=== PATIENT | female | born 1970 | race Caucasian/White ===

== ENCOUNTER 2017-03-26 06:48 | Inpatient (IN) ==
--- NOTE | 2017-03-26 07:09 | EKG Report ---
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
[2017-03-26] MEDS ORDERED: ONDANSETRON 4 MG/2 ML VIAL IV PRN (07:15)
[2017-03-26] MEDS ORDERED: ASPIRIN 325 MG TABLET PO STA (07:15)
[2017-03-26] MEDS ORDERED: ENOXAPARIN 100 MG/ML SYRINGE SUBCUT STA (07:15)
[2017-03-26] MEDS ORDERED: NITROGLYCERIN 2% OINT 1 INCH/GM PACK TOP STA (07:15)
--- NOTE | 2017-03-26 07:18 | Emergency Department Note ---
Koffi Craig Gwan, am scribing for, and in the presence of, Amos Collins MD 07:16 . Karina Craig James D, MD, personally performed the services described in this documentation, ascribed by Ada Rain in my presence, and it is both accurate and complete . Arrival - Arrival Stated Complaint: chest pain,SOB Mode of Arrival: Wheelchair Limitations: No Limitations Source: Patient, Old Records Reviewed, RN Notes Reviewed - History of Present Illness HPI Narrative: Patient is a 46 y/o white female, with a hx of HTN and hysterectomy, who presents to the ED with a c/o chest pain and SOB with an onset this 0500 this morning. She describes her discomfort as waxing/waning and her chest pain as squeezing chest pain that radiates down her left arm. Her associated sxs have been nausea. Patient confirmed that she was drinking coffee at rest when onset occurred but denies that anything makes her pain worse or better. She rates her pain a 2 out of 10. Pt has a FMHx of heart disease, her father had a heart attack at the age of 55. She has a SHx of smoking 1 ppd cigarettes for the past 7 years. During exam, pt did not show any signs of distress. No other problem/ complaints reported in ED. Onset (ago): hour(s) Consistency: constant Severity: moderate Allergies/Adverse Reactions: Allergies Allergy/AdvReac Type Severity Reaction Status Date / Time diphenhydramine Allergy Shakiness Verified 03/26/17 07:02 [From Benadryl] meperidine [From Demerol] AdvReac Nausea Verified 03/26/17 07:02 Review of System - Review of System 12 point system: reviewed and no additional remarkable complaints except as stated - Review of System Constitutional: Absent: chills, fever Eyes: Absent: discharge, pain Head/Ears/Nose/Throat: Absent: earache Respiratory: Present: as per HPI, other (shortness of breathe) Cardiovascular: Present: as per HPI, chest pain Gastrointestinal: Present: as per HPI, nausea. Absent: abdominal pain, vomiting , diarrhea Genitourinary female: Absent: dysuria, discharge Musculoskeletal: Absent: arm pain, back pain, leg pain, neck pain Skin: Absent: rash, lesions Exam Physical Examination: GENERAL: This is a well-nourished, well-developed white female in no apparent distress. VITAL SIGNS: HEENT: Head is normocephalic and atraumatic. Pupils are equally round and reactive to light. Extraocular movement are intact. Oropharynx is benign with moist mucous membranes. NECK: Neck is soft and supple without tenderness. There are no masses. There is no lymphadenopathy. LUNGS: Lungs are clear to auscultation bilaterally. Chest rises symmetrically. There is no chest wall tenderness. CV: Heart is regular rate and rhythm without murmurs, rubs, or gallops. ABDOMEN: Abdomen is soft, non-tender to palpation. There are no abnormal masses palpated. There is no organomegaly. Bowel sounds are present and active. SKIN: Skin is warm and dry. No rash. EXTREMITIES: Patient has full range of motion without tenderness. There is no pedal edema. NEUROLOGIC: Awake, alert, and oriented x4. Cranial nerves II through XII are grossly intact. There are no motorsensory deficits. PSYCHIATRIC: Normal affect. Normal mood. Vital Signs: Vital Signs Temperature 97.6 F 03/26/17 07:53 Pulse Rate 87 03/26/17 07:53 Respiratory Rate 20 03/26/17 07:53 Blood Pressure 121/80 03/26/17 07:53 O2 Sat by Pulse Oximetry 96 03/26/17 06:49 Course Course Narrative: Patient was given aspirin Lovenox and nitroglycerin paste while in the emergency department. - Consultations Consultation #1: Discussed with Dr. Taylor resolution analyst for Dr. Baltazar. Patient will be admitted to his service. Initial orders written for him. Dr. Taylor will assume patient's care upon arrival to the [facility] peer Time: 09:40 Results - Labs CBC & BMP: 03/26/17 07:36 03/26/17 07:36 Lab Results: I have reviewed the patients labs Labs: Laboratory Tests 03/26/17 03/26/17 03/26/17 07:36 07:36 07:36 WBC RBC Hgb Hct Plt Count Lymph % (Auto) [place] % (Auto) Baso % (Auto) Lymph # (Auto) INR 1.0 PT Patient/Control Mix 11.1 Circ Anticoag PTT 31.7 Urine pH 5.0 Ur Specific [place] 1.012 Urine Urobilinogen < 2.0 H Urine RBC <1 Urine WBC <1 Urine Opiates Screen Negative Ur Barbiturates Screen Positive H Ur Phencyclidine Scrn Negative U Amphetamine/Methamph Negative U Benzodiazepines Scrn Negative U Cocaine Metab Screen Negative U Cannabinoids Screen Negative Laboratory Tests 03/26/17 07:36 WBC 5.6 RBC 3.81 Hgb 12.3 Hct 35.2 L Plt Count 174 Lymph % (Auto) 16.7 L Lucas % (Auto) 13.5 H Baso % (Auto) 0.9 H Lymph # (Auto) 0.9 L Laboratory Tests 03/26/17 07:36 Sodium 140 Potassium 4.1 Chloride 106 Carbon Dioxide 27 BUN 17 Creatinine 0.70 BUN/Creatinine Ratio 24.00 H AST 65 H ALT 59 H Laboratory Tests 03/26/17 07:36 Troponin I < 0.015 - EKG EKG results: interpreted by ERMD (EKG: Normal sinus rhythm with a rate of 78, nonspecific ST-T wave changes, normal axis. Nonspecific intraventricular conduction delay.) - Diagnostic Findings Procedure: Chest x-ray: image reviewed by me (No infiltrates, no pleural effusions, no cardiomegaly) Disposition Clinical Impression: Chest pain, Dyspnea, Essential hypertension, Family history of coronary artery disease in father Case discussed with: patient, patient's family Disposition: Still a Patient Condition: Stable
[2017-03-26] MEDS ORDERED: NITROGLYCERIN 2% OINT 1 INCH/GM PACK TOP ONE (07:29)
[2017-03-26] MEDS ORDERED: ENOXAPARIN 100 MG/ML SYRINGE SUBCUT ONE (07:29)
[2017-03-26] MEDS ORDERED: ASPIRIN 325 MG TABLET ONE (07:30)
[2017-03-26] MEDS ORDERED: MORPHINE 2 MG/1 ML SYRINGE ONE (07:30)
[2017-03-26] MEDS ORDERED: ONDANSETRON 4 MG/2 ML VIAL ONE ×2 (07:30→07:32)
[2017-03-26] MEDS: NITROGLYCERIN SL 0.4 MG TABLET SL PRN ×4 (07:37→17:39)
[2017-03-26] MEDS: MORPHINE 2 MG/1 ML SYRINGE IV PRN ×2 (07:43→10:49)
[2017-03-26 08:08] LABS: Basophils # 0.1 10*3/uL (0.0-0.2); Basophils % 0.9 % (0.0-0.8); Eosinophils # 0.2 10*3/uL (0.0-0.87); Eosinophils % 2.7 % (0.00-10.9); Hematocrit 35.2 VOL% (35.7-47.0); Hemoglobin 12.3 GM/DL (12.0-16.0); Immature Granulocytes % 0.4 %; Immature Granulocytes Absolute 0.02 #; Lymphocytes # 0.9 10*3/uL (1.4-4.0); Lymphocytes % 16.7 % (21.3-54.2); Mean Corpuscular HGB Conc 34.9 GM/DL (32-36); Mean Corpuscular Hemoglobin 32 PG (27-34); Mean Corpuscular Volume 92.4 FL (87-102); Mean Platelet Volume 11.4 FL (9.6-12.0); Monocytes # 0.8 10*3/uL (0.11-0.8); Monocytes % 13.5 % (1.7-12.7); Neutrophils # 3.7 10*3/uL (1.4-7.4); Neutrophils % 65.8 % (38.7-73.9); Platelet Count 174 T/CUMM (130-400); Red Blood Count 3.81 MC/CUMM (3.8-5.5); Red Cell Distribution Width 12.5 % (9.3-17.3); White Blood Count 5.6 T/CUMM (4-12)
--- NOTE | 2017-03-26 08:13 | XRay Report ---
XR chest 2V Date: 03/26/2017 7:04 AM History: Cough, fever, chest pain, shortness of breath Comparison: 04/22/2013 Technique: PA and lateral chest Findings: The heart is normal in size. Atelectasis/infiltration in the lingula. Stable mediastinum. Degenerative changes with persistent scoliosis. Impression: Evidence of pneumonia involving the lingula with associated atelectasis. PROCEDURE INTERPRETED AT [facility] DEPARTMENT OF RADIOLOGY Final Report Signed by: Dr. Karo Dorsey
[2017-03-26 08:15] LABS: Apearance,Urine Slightly Hazy (Clear); Bacteria,Urine Occasional /HPF (Few); Bilirubin,Urine Negative (Negative); Blood, Urine Negative (Negative); Glucose,Urine (UA) Negative (Negative); Ketones,Urine Negative (Negative); Mucus,Urine Occasional /LPF (Occasional); Nitrite,Urine Negative (Negative); Protein,Urine Negative; RBC,Urine <1 /HPF (0-4); Squamous Epithelial Cell,Urine Occasional /HPF (0-10); Urine Color Yellow (Yellow); Urine Specific Gravity 1.012 (1.001-1.035); Urine Urobilinogen < 2.0 EU/DL (0.2-1.0); WBC,Urine <1 /HPF (0-6)
[2017-03-26 08:20] LABS: PT Patient Result 11.1 SECS; Partial Thromboplastin Time 31.7 SECS (0-40)
[2017-03-26 08:23] LABS: Barbiturates Screen,Urine Positive (Negative); Benzodiazepines Screen,Urine Negative (Negative); Cannabinoid Screen,Urine Negative (Negative); Opiate Screen,Urine Negative (Negative); Phencyclidine Screen,Urine Negative (Negative)
[2017-03-26 08:48] LABS: Albumin 3.7 G/DL (3.4-5.0); Bilirubin,Total 0.4 MG/DL (0.2-1.0); Calcium 8.6 MG/DL (8.5-10.1); Osmolality,Calculated 280.4 MOS/KG (273-304); Potassium 4.1 MMOL/L (3.5-5.1); Total Protein 6.7 G/DL (6.4-8.3)
[2017-03-26] MEDS: ENOXAPARIN 40 MG/0.4 ML SYRINGE SUBCUT SCH (11:00)
[2017-03-26] MEDS: SODIUM CHLORIDE 0.9% 1,000 ML IV SCH ×2 (11:00→17:57)
--- NOTE | 2017-03-26 13:18 | EKG Report ---
Stationary ECG Study [facility] Test Date: 03/26/2017 1:15:31 PM Pat Name: GERDA MARTINEZ Department: Room: 516 Gender: F Flavoring Maker: [place] : 1970 Requested by: Amos Hinson Order Number: [id number] Reading MD: REGINE STEVENSON Intervals [place] Rate: 75 P: 74 [place]: 182 QRS: -34 QRSD: 126 T: 52 QT: 421 QTc: 450 Interpretive Statements SINUS RHYTHM LEFT AXIS DEVIATION POSSIBLE LATERAL MYOCARDIAL INFARCTION, PROBABLY OLD LOW VOLTAGE IN THE LIMB LEADS NON-SPECIFIC IVCD. Electronically Signed On 03-28-17 07:28:37 CDT by REGINE STEVENSON [id number]
[2017-03-26] MEDS ORDERED: traMADol 50 MG TABLET PO PRN (14:48)
[2017-03-26] MEDS ORDERED: MAGNESIUM SULF RIDER 2 GM in PREMIX 1 EACH IV PRN (14:49)
--- NOTE | 2017-03-26 16:29 | Cardiology Consult Note ---
Raudel Craig Vanessa, RN, am scribing for, and in the presence of, Julio Duran MD 16:25. Assessment and Plan - Time spent with patient Time spent with patient: Greater than 30 minutes (Due to assessment, planning, documentation, and medication review) Time spent discussing smoking cessation with patient: 3 to 10 minutes (1) Chest pain Status: Acute Assessment and plan: Clinically, there are no findings for acute coronary syndrome at this time. Certainly much of her symptomatology sounds to be that of anginal quality at times. She has multiple risk factors for coronary disease and needs a definitive diagnosis. As noted above we will carry out cardiac catheterization with possible PCI.. Current Visit: Yes (2) Dyspnea Status: Acute Assessment and plan: Improved at this time. Chest x-ray this morning with evidence of pneumonia. Current Visit: Yes (3) Essential hypertension Status: Chronic Assessment and plan: Well controlled at this time. Continue current medication regimen. Current Visit: Yes (4) Family history of coronary artery disease in father Status: Chronic Assessment and plan: Father at age 49 due to acute [place]. Current Visit: Yes (5) Dyslipidemia Status: Chronic Assessment and plan: Statin has been continued. FLP in the morning. Current Visit: Yes (6) Smoker Status: Chronic Assessment and plan: Tobacco cessation counseling. Current Visit: Yes History of Present Illness - Data of Consult Patient: new to practice Consult date: 03/26/17 Requesting Physician: Amos Collins Primary care physician: Tejas Baltazar - Consult Narrative Reason for consult: chest pain History of present illness: PRIMARY POLICEMAN: NEW TO CARDIOLOGY (DR. DURAN) CARDIOLOGY CONSULT NOTE: CHEST PAIN, SHORTNESS OF BREATH Ms. Andrew is a 46 year old white female with risk factor significant for: Hypertension, hyperlipidemia, obesity, positive family history for premature CAD , and current smoker. 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 Patient presented to [facility] ED this more with complaints of chest pain with onset earlier this morning while drinking coffee. Reported chest pain as a "muscle spasm" with radiation into the left shoulder and arm, associated with nausea, diaphoresis, and "hard to take in a deep breath". No dizziness lightheadedness, or presyncope. Reports this episode lasted approximately 2 hours until she was in the emergency room, and received aspirin , morphine, Zofran, and sublingual nitroglycerin 2. Cardiac biomarkers have been normal. EKG reveals sinus rhythm and no acute ST segment change. Chest x- ray with evidence for pneumonia. In speaking and examining patient, she reports she has been experiencing these episodes for approximately 2-3 weeks, and she cannot identify any aggravating or alleviating factors. Reports these typically occur at rest, and once about 2 weeks ago, it occurred while she was up and about taking care of her young grandson. Reports she has also had a cold with congestion for the past few days , and has had a nonproductive cough. She also tells me that she had an episode of chest pain approximately 1 hour prior to exam, she received 1 sublingual nitroglycerin, and she felt "maybe a little better" after about 10 minutes. No orthopnea, PND, palpitation. She is not routinely have significant lower extremity edema, but she does have concern that her ankles and feet have been more swollen than usual in the morning time for about the past month. Follow- up troponin level normal. Cardiac monitoring reveals sinus rhythm with pulse rate in the 70s and no ectopy or dysrhythmia. Appetite is good, and she has recently eaten lunch. She has no acute distress at time of exam, and she is not experiencing any current chest pain, shortness of breath, or other complaint. Certainly with her risk factors for coronary artery disease and symptomatology she is having she should have definitive diagnosis carried out. I am concerned that stress testing would be inadequate and that she would probably have symptomatology. I discussed cardiac catheterization with her and her who is present during the interview and exam. I reviewed with him the indication procedure had be carried out and the risk. I discussed cardiac catheterization and percutaneous coronary intervention with the patient and available family. I reviewed with them the indications for the procedure and the basis of how the procedure would be carried out. I also reviewed with them the risk of the procedure which include but not necessarily limited to access site bleeding, bruising, pain, swelling or vascular injury that may require emergency vascular surgery, blood transfusion, or thrombin injection. Also discussed the possibility of stroke, myocardial infarction, arrhythmia which may require electrocardioversion, and the possibility of dye reaction that would require medical therapy. Also discussed the possibility of coronary artery injury, ruptured, closure or perforation that may require emergency bypass surgery. We also discussed the possibility of from a major complication. They voice understanding and agree to proceed. She also is noted on exam to have a murmur with an echocardiogram today. CC: Kym Taylor, DO - Home Medications and Allergies Home Medications: Home Medications Medication Instructions Recorded Confirmed Type Furosemide Tab [Lasix Tab] 20 mg PO DAILY 01/18/15 03/26/17 History Potassium Chloride [Klor-Con 10] 20 meq PO BID 01/18/15 03/26/17 History Sertraline [Zoloft] 50 mg PO DAILY 01/18/15 03/26/17 History Pantoprazole Tab [Protonix Tab] 40 mg PO BID #60 tablet 01/21/15 03/26/17 Rx Atorvastatin [Lipitor] 20 mg PO BEDTIME 07/07/16 03/26/17 History amLODIPine [Norvasc] 5 mg PO BID 07/13/16 03/26/17 History Montelukast Tab [Singulair Tab] 10 mg PO BEDTIME 03/26/17 03/26/17 History Tramadol HCl [Tramadol Tab] 50 mg PO Q6H PRN 03/26/17 03/26/17 History Valsartan/Hydrochlorothiazide 1 tablet PO DAILY 03/26/17 03/26/17 History [Valsartan-Hctz 160-12.5 mg Tab] Zolpidem [Ambien] 5 mg PO BEDTIME PRN 03/26/17 03/26/17 History Allergies/Adverse Reactions: Allergies Allergy/AdvReac Type Severity Reaction Status Date / Time diphenhydramine Allergy Intermediate RASH Verified 07/07/16 16:04 [From Benadryl] meperidine [From Demerol] AdvReac Mild Nausea Verified 07/07/16 16:04 - Constitutional Constitutional: Present: chills, fever(s) (Subjective). Absent: increased appetite, lethargy, malaise, night sweats, stops breathing during sleep, weakness, weight gain, weight loss - EENT Eyes: Absent: blurry vision, loss of vision Ears: Absent: decreased hearing Nose, mouth and throat: Present: sinus pressure. Absent: dysphagia, epistaxis, headache(s), hoarseness, lip swelling, sore throat, throat swelling, tongue swelling - Cardiovascular Cardiovascular: Present: chest pain at rest (None at this time), chest pain with activity (None at this time), diaphoresis (9 this time), dyspnea (None at this time), dyspnea on exertion (None at this time), edema, radiating jaw, neck or arm pain (None currently). Absent: claudication, orthopnea, palpitations - Respiratory Respiratory: Present: cough (Nonproductive), dyspnea, dyspnea on exertion. Absent: hemoptysis, change in phlegm color - Gastrointestinal Gastrointestinal: Present: nausea. Absent: abdominal pain, bloating, coffee ground emesis, constipation, diarrhea, dysphagia, heartburn, hematemesis, hematochezia, melena, vomiting, jaundice - Genitourinary Genitourinary: Absent: abnormal vaginal bleeding, dysuria, flank pain, hematuria - Musculoskeletal Musculoskeletal: Absent: limited range of motion - Neurological Neurological: Absent: abnormal gait, abnormal speech, confusion, numbness, syncope, tremor(s) - Psychiatric Psychiatric: Absent: anxiety, confusion, depression - Endocrine Endocrine: Absent: cold intolerance, heat intolerance - Hematologic/Lymphatic Hematologic/Lymphatic: Absent: easy bleeding, easy bruising Medical,Surgical,& Family Hx - Medical History Cardio: History of: Hypertension No history of: Cardiac Dysrhythmia, CHF, CAD, [place], Pacemaker, PVD Psychological: History of: Anxiety Disorders, Depression Neurology: No history of: Cerebrovascular Accident, Dementia, Seizures, TIA Endocrine: History of: Dyslipidemia Rheumatology: No history of;: Fibromyalgia, Gout Respiratory: History of: Bronchitis, Obstructive Sleep Apnea No history of: COPD Genitourinary: No history of: Kidney Stones Gastrointestinal: History of: Bowel Obstruction, Crohn's Disease, GERD, Polyps, Ulcerative Colitis No history of: Esophageal Varices, Gastrointestinal Bleed Comment Only: GI Problems (History of ulcers) Musculoskeletal: No history of: Back/Neck Problems Hematology: History of: Anemia No history of: Blood Transfusion Reaction Reproductive: History of: Abnormal Pap Smear - Surgical History Cardiac Surgeries: Patient Denies: Cardiac Catheterization, Cardiac Surgery, Carotid Endarterectomy HEENT Surgeries: Surgical HX of: Eye Surgery (LASER SURGERY BILATERAL), Thyroid Surgery Abdominal Surgeries: Surgical HX of: Colonoscopy Reproductive Surgeries: Surgical HX of;: Breast Surgery (lumpectomy, left), Section, Gynecologic Surgery, Hysterectomy Patient denies;: Genitourinary Surgery - Family History Family History: Reports;: Family Cancer (COLON), Family Diabetes, Family Heart Disease (dad-massive heart attack, age 49), Family Hypertension, Family Stroke Denies;: Family Psychiatric Problems - Social History Smoking Status: Current every day smoker Have you smoked in the last 12 months: Yes Frequency of Alcohol Use: None Type of Drug Use: None Lives With:: Parent Functional capacity: independent ambulation Physical Examination Vital Signs Temp Pulse Resp BP Pulse Ox 97.6 F 87 20 121/80 96 03/26/17 06:49 03/26/17 06:49 03/26/17 06:49 03/26/17 06:49 03/26/17 06:49 General: Present: No Apparent Distress, Other (Obese) HEENT: Present: PERRL, Normocephaly, Mucus Membranes Moist Neck: Present: Supple Neck, Midline Trachea, No JVD/HJR, No Masses, No Bruit Cardiac: Present: Reg Rate and Rhythm, Systolic Murmur (1/6 at apex). Absent: Tachycardia, Bradycardia Lungs: Present: Clear Ascult./Percussion, Oxygen, No Wheeze, Rales, Rhonchi Neuro: Present: Grossly Intact. Absent: Numbness, Tingling, Weakness, Resting Tremor, Essential Tremor Abdomen: Present: Soft, Active Bowel Sounds, No Masses, No Pulsations/Bruits, Other (Obese). Absent: Ascites, Tender, Firm Skin: Present: Clear. Absent: Rash, Suspicious Lesions, Bruising Musculoskeletal: Present: No Fluid Collection, Normal Range of Motion Extremities: Present: No Clubbing, No Cyanosis, Normal Upper Extr. Pulses (3+ bilaterally), Normal Lower Extr. Pulses (2-3+ bilaterally), Edema (Minimal to trace pretibial), Capillary Refill (Normal) Result/EKG - Labs CBC & BMP: 03/26/17 07:36 03/26/17 07:36 Lab Results: I have reviewed the past 24 hour labs Labs: Laboratory Results - last 24 hr 03/26/17 03/26/17 03/26/17 07:36 07:36 07:36 WBC RBC Hgb Hct MCV MCH MCHC RDW Plt Count MPV Neut % (Auto) Lymph % (Auto) [place] % (Auto) Eos % (Auto) Baso % (Auto) Neut # (Auto) Lymph # (Auto) [place] # (Auto) Eos # (Auto) Baso # (Auto) Immature Gran % Nucleated RBC % Immature Gran # Nucleated RBCs # INR 1.0 PT Patient/Control Mix 11.1 Circ Anticoag PTT 31.7 Sodium 140 Potassium 4.1 Chloride 106 Carbon Dioxide 27 Anion Gap 11.1 BUN 17 Creatinine 0.70 GFR Calculation 120 BUN/Creatinine Ratio 24.00 H Glucose 97 Calculated Osmolality 280.4 Calcium 8.6 Total Bilirubin 0.40 AST 65 H ALT 59 H Alkaline Phosphatase 113 Troponin I Total Protein 6.7 Albumin 3.7 Globulin 3.0 Albumin/Globulin Ratio 1.2 Urine Color Yellow Urine Appearance Slightly hazy Urine pH 5.0 Ur Specific [place] 1.012 Urine Protein Negative Urine Glucose (UA) Negative Urine Ketones Negative Urine Blood Negative Urine Nitrate Negative Urine Bilirubin Negative Urine Urobilinogen < 2.0 H Urine Leukocytes Negative Urine RBC <1 Urine WBC <1 Ur Squamous Epith Cells Occasional Urine Bacteria Occasional Urine Mucus Occasional Ur Culture Indicated? Not indicated Urine Opiates Screen Ur Barbiturates Screen Ur Phencyclidine Scrn U Amphetamine/Methamph U Benzodiazepines Scrn U Cocaine Metab Screen U Cannabinoids Screen 03/26/17 03/26/17 03/26/17 07:36 07:36 07:36 WBC 5.6 RBC 3.81 Hgb 12.3 Hct 35.2 L MCV 92.4 MCH 32 MCHC 34.9 RDW 12.5 Plt Count 174 MPV 11.4 Neut % (Auto) 65.8 Lymph % (Auto) 16.7 L [place] % (Auto) 13.5 H Eos % (Auto) 2.7 Baso % (Auto) 0.9 H Neut # (Auto) 3.7 Lymph # (Auto) 0.9 L [place] # (Auto) 0.8 Eos # (Auto) 0.2 Baso # (Auto) 0.1 Immature Gran % 0.4 Nucleated RBC % 0.0 Immature Gran # 0.02 Nucleated RBCs # 0.00 INR PT Patient/Control Mix Circ Anticoag PTT Sodium Potassium Chloride Carbon Dioxide Anion Gap BUN Creatinine GFR Calculation BUN/Creatinine Ratio Glucose Calculated Osmolality Calcium Total Bilirubin AST ALT Alkaline Phosphatase Troponin I < 0.015 Total Protein Albumin Globulin Albumin/Globulin Ratio Urine Color Urine Appearance Urine pH Ur Specific [place] Urine Protein Urine Glucose (UA) Urine Ketones Urine Blood Urine Nitrate Urine Bilirubin Urine Urobilinogen Urine Leukocytes Urine RBC Urine WBC Ur Squamous Epith Cells Urine Bacteria Urine Mucus Ur Culture Indicated? Urine Opiates Screen Negative Ur Barbiturates Screen Positive H Ur Phencyclidine Scrn Negative U Amphetamine/Methamph Negative U Benzodiazepines Scrn Negative U Cocaine Metab Screen Negative U Cannabinoids Screen Negative 03/26/17 12:40 WBC RBC Hgb Hct MCV MCH MCHC RDW Plt Count MPV Neut % (Auto) Lymph % (Auto) [place] % (Auto) Eos % (Auto) Baso % (Auto) Neut # (Auto) Lymph # (Auto) [place] # (Auto) Eos # (Auto) Baso # (Auto) Immature Gran % Nucleated RBC % Immature Gran # Nucleated RBCs # INR PT Patient/Control Mix Circ Anticoag PTT Sodium Potassium Chloride Carbon Dioxide Anion Gap BUN Creatinine GFR Calculation BUN/Creatinine Ratio Glucose Calculated Osmolality Calcium Total Bilirubin AST ALT Alkaline Phosphatase Troponin I < 0.015 Total Protein Albumin Globulin Albumin/Globulin Ratio Urine Color Urine Appearance Urine pH Ur Specific [place] Urine Protein Urine Glucose (UA) Urine Ketones Urine Blood Urine Nitrate Urine Bilirubin Urine Urobilinogen Urine Leukocytes Urine RBC Urine WBC Ur Squamous Epith Cells Urine Bacteria Urine Mucus Ur Culture Indicated? Urine Opiates Screen Ur Barbiturates Screen Ur Phencyclidine Scrn U Amphetamine/Methamph U Benzodiazepines Scrn U Cocaine Metab Screen U Cannabinoids Screen - Impressions Impressions: ECG was sinus rhythm and no acute changes. - Diagnostic Findings Procedure: Chest x-ray: image reviewed by me, report reviewed by me - EKG EKG results: interpreted by me, no acute changes EKG shows: sinus rhythm Gokul Craig John Timothy, MD, personally performed the services described in this documentation, ascribed by Kailee Starks RN in my presence, and it is both accurate and complete [id number] .
--- NOTE | 2017-03-26 17:29 | ECHO Report ---
Alana Andrew Exam Date: 03/26/2017 15:44 Referring Physician: Technologist: Lyssa Elder RDCS Age: 46 Ht (in): 65 Wt (lb): 218 Gender: F Exam Location: [facility] Echo Indications: Chest pain, unspecified, Dyspnea, unspecified, Essential (primary) hypertension, Nicotine dependence, cigarettes, uncomplicated, Dyslipidemia, Family hx CAD BP: 93 / 41 HR: 79 Rhythm: Sinus Technical Quality: Fair IMPRESSIONS 1. Left ventricle is normal size and systolic function with ejection fraction 55%. 2. Right ventricle is normal size and systolic function. 3. Left atrium and right atrium are probably normal size. 4. Aortic valve mildly sclerotic but function normal. 5. Mild mitral valve regurgitation. 6. Trace to mild tricuspid regurgitation. 7. At worse mildly elevated right-sided pressures. MEASUREMENTS (Male / Female) Normal Values 2D ECHO LV Diastolic Diameter PLAX 4.7 cm 4.2 - 5.9 / 3.9 - 5.3 cm LV Systolic Diameter PLAX 3.5 cm LV Fractional Shortening PLAX 24.3 % IVS Diastolic Thickness 0.9 cm 0.6 - 1.0 / 0.6 - 0.9 cm LVPW Diastolic Thickness 0.9 cm 0.6 - 1.0 / 0.6 - 0.9 cm RV Internal Dim ED PLAX 3.6 cm Aortic Root Diameter 3.3 cm LA Systolic Diameter LX 2.9 cm 3.0 - 4.0 / 2.7 - 3.8 cm DOPPLER TR Peak Velocity 278.0 cm/s TR Peak Gradient 30.9 mmHg FINDINGS Left Ventricle Normal left ventricular cavity size. Normal left ventricular wall thickness. Left ventricular ejection fraction is estimated at 55 %. Right Ventricle The right ventricle is normal in size and function. Right Atrium Mild atrial enlargement in apical view (elongated RA). Left Atrium Mild atrial enlargement in apical view (elongated LA) but normal diameter from parasternal view. Mitral Valve Morphologically normal mitral valve. Mild mitral valve regurgitation. Aortic Valve Aortic valve sclerosis without stenosis or regurgitation. Tricuspid Valve Morphologically normal tricuspid valve. Trace to mild tricuspid valve regurgitation. Tricuspid regurgitation velocities suggest a PAP of 41 mmHg. Pulmonic Valve Morphologically normal pulmonic valve without significant stenosis. There is no pulmonic regurgitation. Pericardium Normal pericardium without effusion. Aorta Normal ascending aorta dimension. Julio Hodgson MD (Electronically Signed) Final Date: 26 March 2017 17:28
[2017-03-26] MEDS: DOCUSATE SODIUM 100 MG CAPSULE PO SCH (20:04)
[2017-03-26] MEDS: MONTELUKAST 10 MG TABLET PO SCH (20:04)
--- NOTE | 2017-03-26 20:04 | Internal Med History&Physical ---
Assessment and Plan (1) Chest pain Status: Acute Current Visit: Yes Qualifiers: Chest pain type: other chest pain Qualified Code(s): R07.89 - Other chest pain; R07.8 - Other chest pain (2) Dyspnea Status: Acute Current Visit: Yes Qualifiers: Dyspnea type: dyspnea on exertion Qualified Code(s): R06.09 - Other forms of dyspnea (3) Dyslipidemia Status: Chronic Current Visit: Yes (4) Essential hypertension Status: Chronic Current Visit: Yes (5) Family history of coronary artery disease in father Status: Chronic Current Visit: Yes (6) Abnormal liver enzymes Status: Acute Current Visit: Yes (7) Pulmonary infiltrate in left lung on chest x-ray Problem details: antibiotic started to cover pneumonia Status: Acute Current Visit: Yes (8) Atelectasis Problem details: incentive spirometry ordered Status: Acute Current Visit: Yes History of Present Illness Chief complaint: chest pain History of present illness: Ms. Andrew is a 46 year old female patient of Dr. Tejas Baltazar with history of dyslipidemia, RODNEY on CPAP, HTN, family history CAD/OR at young age, who presented to ER with chest pain that began this morning. The pain was an aching pain along with pressure and radiated down her left arm. She will have cardiac catheterization in the morning. ECHO indicates normal LVEF of 55%, but mild pulmonary hypertension. She has known obstructive sleep apnea and is overweight. Chest x-ray is suggestive of left lower lung infiltrate/atelectasis. Antibiotic will be started as well as breathing treatments and incentive spirometer. She is complaining of sinus headache and congestion. Home Medications Medication Instructions Recorded Confirmed Type Furosemide Tab [Lasix Tab] 20 mg PO DAILY 01/18/15 03/26/17 History Potassium Chloride [Klor-Con 10] 20 meq PO BID 01/18/15 03/26/17 History Sertraline [Zoloft] 50 mg PO DAILY 01/18/15 03/26/17 History Pantoprazole Tab [Protonix Tab] 40 mg PO BID #60 tablet 01/21/15 03/26/17 Rx Atorvastatin [Lipitor] 20 mg PO BEDTIME 07/07/16 03/26/17 History amLODIPine [Norvasc] 5 mg PO BID 07/13/16 03/26/17 History Montelukast Tab [Singulair Tab] 10 mg PO BEDTIME 03/26/17 03/26/17 History Tramadol HCl [Tramadol Tab] 50 mg PO Q6H PRN 03/26/17 03/26/17 History Valsartan/Hydrochlorothiazide 1 tablet PO DAILY 03/26/17 03/26/17 History [Valsartan-Hctz 160-12.5 mg Tab] Zolpidem [Ambien] 5 mg PO BEDTIME PRN 03/26/17 03/26/17 History Allergies Allergy/AdvReac Type Severity Reaction Status Date / Time diphenhydramine Allergy Intermediate RASH Verified 07/07/16 16:04 [From Benadryl] meperidine [From Demerol] AdvReac Mild Nausea Verified 07/07/16 16:04 Medical,Surgical,& Family Hx - Medical History Cardio: History of: Hypertension No history of: Cardiac Dysrhythmia, CHF, CAD, OR, Pacemaker, PVD Psychological: History of: Anxiety Disorders, Depression Neurology: No history of: Cerebrovascular Accident, Dementia, Seizures, TIA HEENT: History of: Eye Problem (WEAR GLASSES) Endocrine: History of: Dyslipidemia, Thyroid Disorder (NODULE LEFT SIDE) Rheumatology: No history of;: Fibromyalgia, Gout Respiratory: History of: Bronchitis, Obstructive Sleep Apnea No history of: COPD Genitourinary: No history of: Kidney Stones Gastrointestinal: History of: Bowel Obstruction, Crohn's Disease, GERD, Polyps, Ulcerative Colitis No history of: Esophageal Varices, Gastrointestinal Bleed Comment Only: GI Problems (History of ulcers) Musculoskeletal: No history of: Back/Neck Problems Hematology: History of: Anemia No history of: Blood Transfusion Reaction Reproductive: History of: Abnormal Pap Smear - Surgical History Cardiac Surgeries: Patient Denies: Cardiac Catheterization, Cardiac Surgery, Carotid Endarterectomy HEENT Surgeries: Surgical HX of: Eye Surgery (LASER SURGERY BILATERAL), Thyroid Surgery Patient denies: Carotid Endarterectomy Abdominal Surgeries: Surgical HX of: Colonoscopy Reproductive Surgeries: Surgical HX of;: Breast Surgery (lumpectomy, left), Section, Gynecologic Surgery, Hysterectomy Patient denies;: Genitourinary Surgery - Family History Family History: Reports;: Family Cancer (COLON), Family Diabetes, Family Heart Disease (dad-massive heart attack, age 49), Family Hypertension, Family Stroke Denies;: Family Psychiatric Problems - Social History Smoking Status: Current every day smoker Frequency of Alcohol Use: None Type of Drug Use: None Marital Status: Lives With:: Spouse Functional capacity: independent ambulation - Constitutional Constitutional: Present: headache(s) - Cardiovascular Cardiovascular: Present: dyspnea on exertion - Gastrointestinal Gastrointestinal: Absent: nausea - Musculoskeletal Musculoskeletal: Present: myalgias (chest and arm pain) Exam - Constitutional Vitals: Period Temp Pulse Resp BP Sys/Bee Pulse Ox Last 24 Hr 97.6 F-98.7 F 75-87 18-20 93-121/41-80 94-96 General appearance: no acute distress - Head Head exam: Present: normocephalic - Eye Eye exam: Present: EOMI - Respiratory Respiratory exam: Present: clear to auscultation bilaterally. Absent: wheezes - Cardiovascular Cardiovascular exam: Present: regular rate and rhythm - GI/Abdominal GI/Abdominal exam: Present: soft. Absent: tenderness - Extremities Exam Extremities exam: Absent: edema - Neurological Exam Neurological exam: Present: alert, oriented X3, CN II-XII intact - Psychiatric Psychiatric exam: Present: normal mood - Skin Skin exam: Present: warm, dry Results - Labs CBC & BMP: 03/26/17 07:36 03/26/17 07:36 - EKG EKG shows: sinus rhythm - Diagnostic Findings Procedure: Chest x-ray: image reviewed by me, report reviewed by me
[2017-03-26] MEDS ORDERED: ZALEPLON 5 MG CAPSULE PO PRN (21:33)
[2017-03-26] MEDS: cefTRIAXone 1,000 MG in SODIUM CHLORIDE 0.9% 100 ML IV SCH (23:07)
[2017-03-26] MEDS: NITROGLYCERIN 2% OINT 1 INCH/GM PACK TOP SCH (23:07)
[2017-03-26] MEDS: ATORVASTATIN 10 MG TABLET PO SCH (23:07)
[2017-03-27] MEDS: ALBUTEROL/IPRATROPIUM 3 ML NEB RESP TX SCH ×4 (00:13→19:37)
[2017-03-27] MEDS: SODIUM CHLORIDE 0.9% 1,000 ML IV SCH (03:08)
[2017-03-27 05:13] LABS: Alanine Aminotransferase 46 U/L (13-56); Albumin 3.1 G/DL (3.4-5.0); Alkaline Phosphatase 96 U/L (45-117); Aspartate Amino Transferase 30 U/L (0-37); Bilirubin,Total < 0.39 MG/DL (0.2-1.0); Blood Urea Nitrogen 12 MG/DL (7-18); Cholesterol 123 MG/DL (50-200); Glucose 106 MG/DL (74-106); HDL Cholesterol 33 MG/DL (40-60); Potassium 3.4 MMOL/L (3.5-5.1); Risk Ratio 3.73; Sodium 143 MMOL/L (136-145); Total Protein 5.3 G/DL (6.4-8.3); Triglycerides 150 MG/DL (2-150)
[2017-03-27] MEDS ORDERED: DIAZEPAM 5 MG TABLET PO ONE (06:00)
[2017-03-27] MEDS ORDERED: diphenhydrAMINE CAP 25 MG CAPSULE PO ONE (06:00)
[2017-03-27] MEDS ORDERED: ASPIRIN 325 MG TABLET PO ONE (06:00)
--- NOTE | 2017-03-27 06:23 | Cardiology Progress Note ---
Assessment and Plan (1) Chest pain Status: Acute Assessment and plan: Minimal chest pain since admission. Plans for cardiac catheterization this morning and intervention if indicated. Again discussed this with the patient. Current Visit: Yes Qualifiers: Chest pain type: other chest pain Qualified Code(s): R07.89 - Other chest pain; R07.8 - Other chest pain (2) Dyspnea Status: Acute Assessment and plan: This is stable at this time without any dyspnea. Current Visit: Yes Qualifiers: Dyspnea type: dyspnea on exertion Qualified Code(s): R06.09 - Other forms of dyspnea (3) Essential hypertension Status: Chronic Assessment and plan: Well controlled at this time. Continue current medication regimen. Current Visit: Yes (4) Family history of coronary artery disease in father Status: Chronic Assessment and plan: Father at age 49 due to acute DC. Current Visit: Yes (5) Dyslipidemia Status: Chronic Assessment and plan: Statin has been continued. Lipids are stable this morning. Current Visit: Yes (6) Smoker Status: Chronic Assessment and plan: Tobacco cessation counseling. Current Visit: Yes Cardiology - PN: Subj Interval history: Patient is doing well since we saw her yesterday. She is but has some very mild chest pain. She has had no shortness of breath palpitations. Her telemetry reveals sinus rhythm. Her echocardiogram ejection fraction 55% without any other real significant abnormalities, she did have it worse mild mitral regurgitation. Her lab work this morning is fairly unremarkable. Her potassium is a little low and will be replaced by protocol. The patient is for cardiac catheterization possible intervention this morning. I reviewed and reviewed this with the patient and her . They voiced understanding agree to proceed. Exam (Progress Note) - Constitutional Vitals: Period Temp Pulse Resp BP Sys/Bee Pulse Ox Last 24 Hr 97.6 F-99.2 F 70-92 16-20 93-136/41-91 91-96 Exam: General appearance: Obese, no acute distress HEENT exam: normal inspection, atraumatic Neck exam: normal inspection no JVD. No carotid bruit. Trachea is in midline Respiratory/lungs exam: clear to auscultation bilaterally good air movement. Cardiovascular exam: regular rate and rhythm, no murmur or gallop or rub. No precordial lift. Chest wall exam: nontender GI/Abdominal exam: normal bowel sounds, soft, nontender, no abdominal bruits or pulsatile masses. Extremeties/musculoskeletal: normal inspection without edema or cyanosis. Neurological exam: alert, oriented X3, no focal deficits Psychiatric exam: normal affect, normal mood. Cognitive function is grossly normal. Skin exam: normal color, warm Result/EKG - Labs CBC & BMP: 03/26/17 07:36 03/27/17 04:14 Lab Results: I have reviewed the past 24 hour labs Labs: Laboratory Results - last 24 hr 03/26/17 03/26/17 03/26/17 07:36 07:36 07:36 WBC RBC Hgb Hct MCV MCH MCHC RDW Plt Count MPV Neut % (Auto) Lymph % (Auto) Mellette % (Auto) Eos % (Auto) Baso % (Auto) Neut # (Auto) Lymph # (Auto) Mellette # (Auto) Eos # (Auto) Baso # (Auto) Immature Gran % Nucleated RBC % Immature Gran # Nucleated RBCs # INR 1.0 PT Patient/Control Mix 11.1 Circ Anticoag PTT 31.7 Sodium 140 Potassium 4.1 Chloride 106 Carbon Dioxide 27 Anion Gap 11.1 BUN 17 Creatinine 0.70 GFR Calculation 120 BUN/Creatinine Ratio 24.00 H Glucose 97 Calculated Osmolality 280.4 Calcium 8.6 Magnesium Total Bilirubin 0.40 AST 65 H ALT 59 H Alkaline Phosphatase 113 Troponin I Total Protein 6.7 Albumin 3.7 Globulin 3.0 Albumin/Globulin Ratio 1.2 Triglycerides Cholesterol LDL Cholesterol VLDL Cholesterol HDL Cholesterol Heart Disease Risk Ratio Urine Color Yellow Urine Appearance Slightly hazy Urine pH 5.0 Ur Specific Schulter 1.012 Urine Protein Negative Urine Glucose (UA) Negative Urine Ketones Negative Urine Blood Negative Urine Nitrate Negative Urine Bilirubin Negative Urine Urobilinogen < 2.0 H Urine Leukocytes Negative Urine RBC <1 Urine WBC <1 Ur Squamous Epith Cells Occasional Urine Bacteria Occasional Urine Mucus Occasional Ur Culture Indicated? Not indicated Urine Opiates Screen Ur Barbiturates Screen Ur Phencyclidine Scrn U Amphetamine/Methamph U Benzodiazepines Scrn U Cocaine Metab Screen U Cannabinoids Screen 03/26/17 03/26/17 03/26/17 07:36 07:36 07:36 WBC 5.6 RBC 3.81 Hgb 12.3 Hct 35.2 L MCV 92.4 MCH 32 MCHC 34.9 RDW 12.5 Plt Count 174 MPV 11.4 Neut % (Auto) 65.8 Lymph % (Auto) 16.7 L Mellette % (Auto) 13.5 H Eos % (Auto) 2.7 Baso % (Auto) 0.9 H Neut # (Auto) 3.7 Lymph # (Auto) 0.9 L Mellette # (Auto) 0.8 Eos # (Auto) 0.2 Baso # (Auto) 0.1 Immature Gran % 0.4 Nucleated RBC % 0.0 Immature Gran # 0.02 Nucleated RBCs # 0.00 INR PT Patient/Control Mix Circ Anticoag PTT Sodium Potassium Chloride Carbon Dioxide Anion Gap BUN Creatinine GFR Calculation BUN/Creatinine Ratio Glucose Calculated Osmolality Calcium Magnesium Total Bilirubin AST ALT Alkaline Phosphatase Troponin I < 0.015 Total Protein Albumin Globulin Albumin/Globulin Ratio Triglycerides Cholesterol LDL Cholesterol VLDL Cholesterol HDL Cholesterol Heart Disease Risk Ratio Urine Color Urine Appearance Urine pH Ur Specific Schulter Urine Protein Urine Glucose (UA) Urine Ketones Urine Blood Urine Nitrate Urine Bilirubin Urine Urobilinogen Urine Leukocytes Urine RBC Urine WBC Ur Squamous Epith Cells Urine Bacteria Urine Mucus Ur Culture Indicated? Urine Opiates Screen Negative Ur Barbiturates Screen Positive H Ur Phencyclidine Scrn Negative U Amphetamine/Methamph Negative U Benzodiazepines Scrn Negative U Cocaine Metab Screen Negative U Cannabinoids Screen Negative 03/26/17 03/26/17 03/27/17 12:40 17:15 04:14 WBC RBC Hgb Hct MCV MCH MCHC RDW Plt Count MPV Neut % (Auto) Lymph % (Auto) Mellette % (Auto) Eos % (Auto) Baso % (Auto) Neut # (Auto) Lymph # (Auto) Mellette # (Auto) Eos # (Auto) Baso # (Auto) Immature Gran % Nucleated RBC % Immature Gran # Nucleated RBCs # INR PT Patient/Control Mix Circ Anticoag PTT Sodium 143 Potassium 3.4 L Chloride 108 H Carbon Dioxide 28 Anion Gap 10.4 BUN 12 Creatinine 0.60 GFR Calculation 129 BUN/Creatinine Ratio 20.00 Glucose 106 Calculated Osmolality 284.0 Calcium 8.0 L Magnesium 2.1 Total Bilirubin < 0.39 AST 30 ALT 46 Alkaline Phosphatase 96 Troponin I < 0.015 Total Protein 5.3 L Albumin 3.1 L Globulin 2.2 L Albumin/Globulin Ratio 1.4 Triglycerides 150 Cholesterol 123 LDL Cholesterol 76.0 VLDL Cholesterol 30.0 HDL Cholesterol 33 L Heart Disease Risk Ratio 3.73 Urine Color Urine Appearance Urine pH Ur Specific Schulter Urine Protein Urine Glucose (UA) Urine Ketones Urine Blood Urine Nitrate Urine Bilirubin Urine Urobilinogen Urine Leukocytes Urine RBC Urine WBC Ur Squamous Epith Cells Urine Bacteria Urine Mucus Ur Culture Indicated? Urine Opiates Screen Ur Barbiturates Screen Ur Phencyclidine Scrn U Amphetamine/Methamph U Benzodiazepines Scrn U Cocaine Metab Screen U Cannabinoids Screen - Impressions Impressions: Telemetry with normal sinus rhythm without dysrhythmias noted. Echocardiogram is noted with ejection fraction 55% of the left ventricle with other cardiac chambers overall unremarkable. It worse mild mitral valve regurgitation.
[2017-03-27] MEDS: NITROGLYCERIN 2% OINT 1 INCH/GM PACK TOP SCH ×3 (06:24→23:44)
--- NOTE | 2017-03-27 06:31 | History and Physical Update ---
Sedation H&P Update - History and Physical H&P was reviewed, the patient examined and there: are no changes in the patients condition since last H&P was completed. - Dictation Physical: refer to H&P completed by admitting physician - Physical Exam Mental Status: alert and oriented Heart: regular rate and rhythm Lung: clear to auscultation Abdomen: within normal limits Vitals: within normal limits History and Physical Changes: None - Sedation Plan for Sedation: moderate Patient Consent: Procedure disscussed with patient and patinet has consented., Risks and benefits were discussed with patient,including infection,, bleeding, injury to surrounding structures, seizure, temporary nerve, Patient understands and accepts potential risks/benefits and agrees to, proceed. ASA Class: III Airway Assessment: Class III: Soft palate, base of uvula visible
--- NOTE | 2017-03-27 06:35 | EKG Report ---
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
[2017-03-27] MEDS: ONDANSETRON 4 MG/2 ML VIAL IV PRN ×2 (06:45→13:41)
[2017-03-27] MEDS ORDERED: MIDAZOLAM 2 MG/2 ML VIAL ONE (07:53)
[2017-03-27] MEDS ORDERED: fentaNYL 100 MCG/2 ML VIAL ONE (07:53)
[2017-03-27] MEDS ORDERED: LIDOCAINE 1% 20 ML VIAL ONE (07:56)
[2017-03-27] MEDS ORDERED: GLUCAGON 1 MG VIAL IM PRN (08:28)
[2017-03-27] MEDS ORDERED: DEXTROSE 50% 25 GM/50 ML VIAL IV PRN (08:28)
--- NOTE | 2017-03-27 08:28 | Operative Note ---
Date of procedure: 03/27/17 Procedure Preformed: Left heart catheterization with LV gram. Surgeon / Physician: Julio Hodgson Watch Parts Inspector: Eris Gregg Post-op diagnosis: other (Normal coronaries) Findings: Normal left ventricular function ejection fraction. Right left coronary systems are widely patent. Specimens: none sent Estimated blood loss: minimal Condition: stable Anesthesia: local, conscious sedation Disposition: floor
--- NOTE | 2017-03-27 09:14 | Cardiac Catheterization ---
Date of Procedure:: 03/27/17 Pre-op Diagnosis: Patient with chest pain with multiple risk factors for coronary disease. Chest pain of anginal quality. Post-op diagnosis: other (Normal coronaries) Procedure: LEFT HEART CATHERIZATION History: 46-year-old female multiple risk factors for coronary artery disease. Now with anginal quality chest pain. Cardiac enzymes were normal. ECG though without acute changes. Pre-Op diagnosis: Chest pain of anginal quality multiple risk factors for coronary disease. Postoperative diagnosis: Normal coronary arteries. Procedures: 1. Left heart catheterization. 2. Left ventricular angiogram. 3. Selective left and right coronary angiograms. 4. Right common femoral artery Angio-Seal hemostasis. Equipment: 6 Bahamian arterial sheath, 6 Bahamian diagnostic pigtail catheter, JL4 and JR4 diagnostic catheters. A 6 Bahamian Angio-Seal hemostatic device. Medications: Preoperative Benadryl and Valium given by mouth. Lidocaine 1% local anesthesia 10 mls administered by myself. Intraprocedure patient received Versed 2 mgs IVP, fentanyl 100 mcg IVP, Dilaudid mgs IVP. Complications: None immediate. Contrast: Omnipaque 78 milliliters. Description of procedure: After informed consent the patient was given preoperative medications and brought to the catheterization laboratory where their right groin was prepped and draped in usual fashion. IV sedation was then obtained after which local anesthesia was administered at the right groin over the right common femoral artery. Using modified Seldinger technique the right common femoral artery was cannulated with 6 Bahamian arterial sheath placed. The pigtail catheter was then advanced through the sheath in a retrograde approach through the aorta to the aortic valve. The catheter was advanced through the aortic valve where left ventricular pressures were measured. The catheter was then pulled back into the aortic root and pressures measured. The catheter was then advanced across the aortic valve into the left ventricle where left ventricular angiogram was obtained in the right anterior oblique view. The pigtail catheter was then removed. The JL4 diagnostic coronary catheter was then advanced through the sheath in a retrograde approach and used to cannulate the left coronary artery of which angiograms were obtained in multiple projections. This catheter was then removed. The JR 4 diagnostic coronary catheter was then advanced retrograde through the aorta and used to cannulate the right coronary artery of which angiograms were obtained in multiple projections. Angiograms were then reviewed. Right coronary catheter was then removed. Right cuff artery had been evaluated and seen by way of LV gram with runoff. Angio-Seal hemostasis was obtained without complications. Hemodynamic data: LV 94/-3 , EDP 11 ; AO root 94/59 , mean 76 . Left ventricular angiogram: Left ventricle is normal size. Overall ejection fraction is 55%. There is a small area of prior anterior laterally that is hypo -to akinetic. This is extremely small. There is no significant mitral regurgitation demonstrated. The aortic valve appeared to be a tricuspid structure. The thoracic aorta from the right anterior oblique view is unremarkable. Left main coronary artery angiogram: Left main coronary artery medium large in size bifurcating LAD and circumflex arteries. It is without stenosis or disease. Left anterior descending artery angiogram: The LAD is a medium caliber vessel probably slightly smaller than the proximal circumflex artery. The LAD tapers from a medium sized vessel distally and small vessel at the apex. It extends around slightly to the posterior apical region. The first diagonal branch is a medium sized vessel multiple branches. The LAD proper diagonal branch without stenosis or disease. Circumflex artery angiogram: Circumflex arteries a medium large size vessel. First obtuse marginal branch is a medium-sized vessel with a second obtuse marginal branch being medium size. The circumflex artery proper branches without stenosis or disease. Right coronary artery angiogram: The RCA is a medium sized vessel dominant. The PDA is a medium caliber vessel with a small medium caliber posterior lateral branches. Small AV node artery. There is no stenosis or other disease in the RCA proper or branches. Right common femoral artery angiogram: Right calf arteries adequately visualized with LV gram runoff. The sheath is inserted in the right common femoral artery. Impression: 1. Left ventricle is normal size and systolic function ejection fraction 55%. There is a very small segmental wall motion normality. We do not find occlusive disease to account for this wall motion abnormality. Overall ejection fraction though is stable. 2. LVEDP normal at 11 mmHg. 3. Aortic valve tricuspid structure without gradient. 4. No significant mitral valve regurgitation on this study. 5. Right and left coronary artery systems are widely patent without stenosis or disease. 6. Successful Angio-Seal hemostasis of the right common femoral artery. Discussion: We will monitor the patient post cardiac catheterization. She remains stable she will go home later today. Long-term she needs risk factor modification. Implants: None Anesthesia: local, moderate conscious sedation Surgeon / Physician: Julio Hodgson Medical Front Desk Coordinator: other (Eris Gregg RN) Estimated blood loss: minimal Specimens: none sent Condition: stable Disposition: floor - Medications / Follow-up
[2017-03-27] MEDS: ENOXAPARIN 40 MG/0.4 ML SYRINGE SUBCUT SCH (09:56)
[2017-03-27] MEDS: SERTRALINE 25 MG TABLET PO SCH (09:56)
[2017-03-27] MEDS: PANTOPRAZOLE 40 MG TABLET PO SCH (09:56)
[2017-03-27] MEDS: DOCUSATE SODIUM 100 MG CAPSULE PO SCH ×2 (09:56→20:41)
[2017-03-27] MEDS: INSULIN REGULAR 100 UNIT/ML SUBCUT SCH ×2 (11:30→15:52)
[2017-03-27] MEDS: ACETAMINOPHEN 325 MG TABLET PO PRN ×2 (13:49→23:48)
[2017-03-27] MEDS: KETOROLAC 15 MG/1 ML VIAL IV SCH ×2 (16:05→23:33)
--- NOTE | 2017-03-27 16:08 | Event Note ---
Patient doing well post cardiac catheterization. Right groin stable. Her coronary arteries were stable without any abnormalities to account for symptomatology. We will follow-up on the patient in the morning.
[2017-03-27] MEDS ORDERED: ONDANSETRON 4 MG/2 ML VIAL IV PRN (17:19)
[2017-03-27] MEDS: POTASSIUM CHLORIDE RIDER 10 MEQ in PREMIX 1 EACH IV PRN ×2 (18:24→20:38)
[2017-03-27] MEDS: ATORVASTATIN 10 MG TABLET PO SCH (20:41)
[2017-03-27] MEDS: MONTELUKAST 10 MG TABLET PO SCH (20:41)
[2017-03-27] MEDS: methylPREDNISolone SOD SUC 40 MG/1 ML VIAL IV SCH (20:42)
--- NOTE | 2017-03-27 21:09 | Internal Med Progress Note ---
Assessment and Plan (1) Chest pain Status: Resolved Current Visit: Yes Qualifiers: Chest pain type: other chest pain Qualified Code(s): R07.89 - Other chest pain; R07.8 - Other chest pain (2) Dyspnea Status: Resolved Current Visit: Yes Qualifiers: Dyspnea type: dyspnea on exertion Qualified Code(s): R06.09 - Other forms of dyspnea (3) Dyslipidemia Status: Chronic Current Visit: Yes (4) Essential hypertension Status: Chronic Current Visit: Yes (5) Family history of coronary artery disease in father Status: Chronic Current Visit: Yes (6) Abnormal liver enzymes Status: Resolved Current Visit: Yes (7) Pulmonary infiltrate in left lung on chest x-ray Problem details: antibiotic started to cover pneumonia Status: Acute Current Visit: Yes (8) Atelectasis Problem details: incentive spirometry ordered Status: Acute Current Visit: Yes (9) Pneumonia Status: Acute Current Visit: Yes Qualifiers: Laterality: left (10) Fever Status: Acute Current Visit: Yes Qualifiers: Fever type: due to other condition Qualified Code(s): R50.81 - Fever presenting with conditions classified elsewhere Internal Medicine - PN: Subj Interval history: Ms. Andrew is a 46 year old female patient of Dr. Tejas Baltazar with history of dyslipidemia, RODNEY on CPAP, HTN, family history CAD/[place] at young age, who presented to ER with chest pain that began this morning. The pain was an aching pain along with pressure and radiated down her left arm. She will have cardiac catheterization in the morning. ECHO indicates normal LVEF of 55%, but mild pulmonary hypertension. She has known obstructive sleep apnea and is overweight. Chest x-ray is suggestive of left lower lung infiltrate/atelectasis. Antibiotic will be started as well as breathing treatments and incentive spirometer. She is complaining of sinus headache and congestion. She will be treated for pneumonia, and Azithromycin has been added as well as Solumedrol low dose, and Toradol to help with body aches and fever. She has fever earlier today. Blood cultures ordered. Pneumonia likely source of chest pain. Exam (Progress Note) - Constitutional Vitals: Period Temp Pulse Resp BP Sys/Bee Pulse Ox Last 24 Hr 97.9 F-101.7 F 72-92 16-20 97-136/54-91 90-98 General appearance: no acute distress - Respiratory Respiratory exam: Present: clear to auscultation bilaterally - Cardiovascular Cardiovascular exam: Present: regular rate and rhythm - GI/Abdominal GI/Abdominal exam: Present: soft. Absent: tenderness - Extremities Exam Extremities exam: Absent: edema - Neurological Exam Neurological exam: Present: alert, oriented X3 - Psychiatric Psychiatric exam: Present: normal mood - Skin Skin exam: Present: warm, dry Results - Labs CBC & BMP: 03/28/17 05:37 03/28/17 05:37 Quality Measures - VTE Contraindication to Pharmacological VTE Prophylaxis: High Risk of Bleeding Specialty Discharge - Follow Up or Referrals
[2017-03-27] MEDS ORDERED: POTASSIUM CHLORIDE 10 MEQ TABLET PO ONE (23:13)
[2017-03-27] MEDS: PROMETHAZINE 25 MG/1 ML VIAL IM PRN (23:32)
[2017-03-27] MEDS: AZITHROMYCIN INJ 250 MG in SODIUM CHLORIDE 0.9% 250 ML IV SCH (23:37)
[2017-03-28] MEDS: ALBUTEROL/IPRATROPIUM 3 ML NEB RESP TX SCH ×4 (01:02→19:43)
[2017-03-28] MEDS: cefTRIAXone 1,000 MG in SODIUM CHLORIDE 0.9% 100 ML IV SCH (01:42)
[2017-03-28] MEDS: methylPREDNISolone SOD SUC 40 MG/1 ML VIAL IV SCH ×4 (03:45→20:56)
[2017-03-28 05:47] LABS: Basophils % 0.5 % (0.0-0.8); Eosinophils # 0.1 10*3/uL (0.0-0.87); Eosinophils % 0.8 % (0.00-10.9); Hematocrit 32.7 VOL% (35.7-47.0); Hemoglobin 10.9 GM/DL (12.0-16.0); Immature Granulocytes % 0.6 %; Immature Granulocytes Absolute 0.04 #; Lymphocytes # 1.6 10*3/uL (1.4-4.0); Lymphocytes % 24.8 % (21.3-54.2); Mean Corpuscular HGB Conc 33.3 GM/DL (32-36); Mean Corpuscular Hemoglobin 32 PG (27-34); Mean Corpuscular Volume 95.3 FL (87-102); Mean Platelet Volume 11.2 FL (9.6-12.0); Monocytes # 0.4 10*3/uL (0.11-0.8); Monocytes % 6.4 % (1.7-12.7); Neutrophils # 4.2 10*3/uL (1.4-7.4); Neutrophils % 66.9 % (38.7-73.9); Platelet Count 167 T/CUMM (130-400); Red Blood Count 3.43 MC/CUMM (3.8-5.5); Red Cell Distribution Width 12.7 % (9.3-17.3); White Blood Count 6.3 T/CUMM (4-12)
[2017-03-28] MEDS: NITROGLYCERIN 2% OINT 1 INCH/GM PACK TOP SCH ×3 (06:22→20:59)
[2017-03-28 06:24] LABS: Calcium 8.5 MG/DL (8.5-10.1); Osmolality,Calculated 287.7 MOS/KG (273-304); Potassium 4.1 MMOL/L (3.5-5.1)
--- NOTE | 2017-03-28 07:01 | Cardiology Progress Note ---
Assessment and Plan (1) Chest pain Status: Resolved Assessment and plan: No further chest pain. Her chest pain is noncardiac with normal cardiac catheterization. No further evaluation from our standpoint. We will sign off at this time. Current Visit: Yes Qualifiers: Chest pain type: other chest pain Qualified Code(s): R07.89 - Other chest pain; R07.8 - Other chest pain (2) Dyspnea Status: Resolved Assessment and plan: This is stable at this time without any dyspnea. Current Visit: Yes Qualifiers: Dyspnea type: dyspnea on exertion Qualified Code(s): R06.09 - Other forms of dyspnea (3) Essential hypertension Status: Chronic Assessment and plan: Well controlled at this time. Continue current medication regimen. Current Visit: Yes (4) Family history of coronary artery disease in father Status: Chronic Assessment and plan: Father at age 49 due to acute OR. Current Visit: Yes (5) Dyslipidemia Status: Chronic Assessment and plan: Statin has been continued. Lipids are stable. Current Visit: Yes (6) Smoker Status: Chronic Assessment and plan: Tobacco cessation counseling. Current Visit: Yes (7) Fever Status: Acute Assessment and plan: Elevated temps yesterday etiology unclear. None this morning. This is being evaluated by Dr. Taylor. Current Visit: Yes Cardiology - PN: Subj Interval history: Patient is doing well post cardiac catheterization. Had no further chest pain. No shortness of breath. Her right groin is been stable she denies any pain or other issues with this. She has had no further fever this morning. Her evaluation for this is pending. I discussed again with her findings of her cardiac catheterization. She had normal left ventricular function and normal hemodynamics and widely patent coronary arteries. Her symptomatology is noncardiac. Discussed with her risk factor modification long-term. Her lipids are stable on present therapy. Also discussed with her exercise and weight loss. We will sign off at this time but are available if needed. Please call let us know we could be further service. Exam (Progress Note) - Constitutional Vitals: Period Temp Pulse Resp BP Sys/Bee Pulse Ox Last 24 Hr 97.6 F-101.7 F 67-90 18-21 97-125/54-79 90-99 Exam: General appearance: Obese, no acute distress HEENT exam: normal inspection, atraumatic Neck exam: normal inspection no JVD. No carotid bruit. Trachea is in midline Respiratory/lungs exam: clear to auscultation bilaterally good air movement. Cardiovascular exam: regular rate and rhythm, no murmur or gallop or rub. No precordial lift. Chest wall exam: nontender GI/Abdominal exam: normal bowel sounds, soft, nontender, no abdominal bruits or pulsatile masses. Extremeties/musculoskeletal: normal inspection without edema or cyanosis. Right groin cath site is stable. Neurological exam: alert, oriented X3, no focal deficits Psychiatric exam: normal affect, normal mood. Cognitive function is grossly normal. Skin exam: normal color, warm Result/EKG - Labs CBC & BMP: 03/28/17 05:37 03/28/17 05:37 Lab Results: I have reviewed the past 24 hour labs Labs: Laboratory Results - last 24 hr 03/27/17 03/27/17 03/28/17 10:37 15:23 05:37 WBC 6.3 RBC 3.43 L Hgb 10.9 L Hct 32.7 L MCV 95.3 MCH 32 MCHC 33.3 RDW 12.7 Plt Count 167 MPV 11.2 Neut % (Auto) 66.9 Lymph % (Auto) 24.8 [place] % (Auto) 6.4 Eos % (Auto) 0.8 Baso % (Auto) 0.5 Neut # (Auto) 4.2 Lymph # (Auto) 1.6 [place] # (Auto) 0.4 Eos # (Auto) 0.1 Baso # (Auto) 0.0 Immature Gran % 0.6 Nucleated RBC % 0.0 Immature Gran # 0.04 Nucleated RBCs # 0.00 Sodium Potassium Chloride Carbon Dioxide Anion Gap BUN Creatinine GFR Calculation BUN/Creatinine Ratio Glucose POC Glucose 162 H 108 H Calculated Osmolality Calcium 03/28/17 05:37 WBC RBC Hgb Hct MCV MCH MCHC RDW Plt Count MPV Neut % (Auto) Lymph % (Auto) [place] % (Auto) Eos % (Auto) Baso % (Auto) Neut # (Auto) Lymph # (Auto) [place] # (Auto) Eos # (Auto) Baso # (Auto) Immature Gran % Nucleated RBC % Immature Gran # Nucleated RBCs # Sodium 145 Potassium 4.1 Chloride 110 H Carbon Dioxide 30 Anion Gap 9.1 BUN 8 Creatinine 0.70 GFR Calculation 123 BUN/Creatinine Ratio 11.00 Glucose 133 H POC Glucose Calculated Osmolality 287.7 Calcium 8.5 - Impressions Impressions: Telemetry was sinus rhythm. Quality Measures - VTE Contraindication to Pharmacological VTE Prophylaxis: High Risk of Bleeding Specialty Discharge - Follow Up or Referrals
[2017-03-28] MEDS: KETOROLAC 15 MG/1 ML VIAL IV SCH ×3 (09:19→23:34)
[2017-03-28] MEDS: PANTOPRAZOLE 40 MG TABLET PO SCH (09:20)
[2017-03-28] MEDS: DOCUSATE SODIUM 100 MG CAPSULE PO SCH ×2 (09:20→20:56)
[2017-03-28] MEDS: ENOXAPARIN 40 MG/0.4 ML SYRINGE SUBCUT SCH ×2 (09:20→10:35)
[2017-03-28] MEDS: SERTRALINE 25 MG TABLET PO SCH (09:20)
[2017-03-28] MEDS: PROMETHAZINE 25 MG/1 ML VIAL IM PRN (16:32)
--- NOTE | 2017-03-28 19:29 | Internal Med Progress Note ---
Assessment and Plan (1) Chest pain Status: Resolved Current Visit: Yes Qualifiers: Chest pain type: other chest pain Qualified Code(s): R07.89 - Other chest pain; R07.8 - Other chest pain (2) Dyspnea Status: Resolved Current Visit: Yes Qualifiers: Dyspnea type: dyspnea on exertion Qualified Code(s): R06.09 - Other forms of dyspnea (3) Dyslipidemia Status: Chronic Current Visit: Yes (4) Essential hypertension Status: Chronic Current Visit: Yes (5) Family history of coronary artery disease in father Status: Chronic Current Visit: Yes (6) Abnormal liver enzymes Status: Resolved Current Visit: Yes (7) Pulmonary infiltrate in left lung on chest x-ray Problem details: antibiotic started to cover pneumonia Status: Acute Current Visit: Yes (8) Atelectasis Problem details: incentive spirometry ordered Status: Acute Current Visit: Yes (9) Pneumonia Status: Acute Current Visit: Yes Qualifiers: Laterality: left (10) Fever Status: Acute Current Visit: Yes Qualifiers: Fever type: due to other condition Qualified Code(s): R50.81 - Fever presenting with conditions classified elsewhere Internal Medicine - PN: Subj Interval history: Ms. Andrew is a 46 year old female patient of Dr. Tejas Baltazar with history of dyslipidemia, RODNEY on CPAP, HTN, family history CAD/[place] at young age, who presented to ER with chest pain that began this morning. The pain was an aching pain along with pressure and radiated down her left arm. She will have cardiac catheterization in the morning. ECHO indicates normal LVEF of 55%, but mild pulmonary hypertension. She has known obstructive sleep apnea and is overweight. Chest x-ray is suggestive of left lower lung infiltrate/atelectasis. Antibiotic will be started as well as breathing treatments and incentive spirometer. She is complaining of sinus headache and congestion. She will be treated for pneumonia, and Azithromycin has been added as well as Solumedrol low dose, and Toradol to help with body aches and fever. She has fever earlier today. Blood cultures ordered. Pneumonia likely source of chest pain. Doing better and will continue to run IV antibiotic therapy for another day. Exam (Progress Note) - Constitutional Vitals: Period Temp Pulse Resp BP Sys/Bee Pulse Ox Last 24 Hr 97.6 F-101.1 F 65-89 18-21 100-125/62-79 90-99 Exam: General appearance: no acute distress - Respiratory Respiratory exam: Present: clear to auscultation bilaterally - Cardiovascular Cardiovascular exam: Present: regular rate and rhythm - GI/Abdominal GI/Abdominal exam: Present: soft. Absent: tenderness - Extremities Exam Extremities exam: Absent: edema - Neurological Exam Neurological exam: Present: alert, oriented X3 - Psychiatric Psychiatric exam: Present: normal mood - Skin Skin exam: Present: warm, dry Results - Labs CBC & BMP: 03/28/17 05:37 03/29/17 04:06 Quality Measures - VTE Contraindication to Pharmacological VTE Prophylaxis: High Risk of Bleeding Specialty Discharge - Follow Up or Referrals
[2017-03-28] MEDS: MONTELUKAST 10 MG TABLET PO SCH (20:56)
[2017-03-28] MEDS: ATORVASTATIN 10 MG TABLET PO SCH (20:56)
[2017-03-28] MEDS: AZITHROMYCIN INJ 250 MG in SODIUM CHLORIDE 0.9% 250 ML IV SCH (23:36)
[2017-03-29] MEDS: ALBUTEROL/IPRATROPIUM 3 ML NEB RESP TX SCH ×4 (00:36→19:03)
[2017-03-29] MEDS: cefTRIAXone 1,000 MG in SODIUM CHLORIDE 0.9% 100 ML IV SCH (01:37)
[2017-03-29] MEDS: methylPREDNISolone SOD SUC 40 MG/1 ML VIAL IV SCH ×3 (05:05→20:43)
[2017-03-29] MEDS: NITROGLYCERIN 2% OINT 1 INCH/GM PACK TOP SCH ×3 (05:05→22:31)
[2017-03-29 05:49] LABS: Calcium 8.3 MG/DL (8.5-10.1); Osmolality,Calculated 294.4 MOS/KG (273-304); Potassium 4.2 MMOL/L (3.5-5.1)
[2017-03-29] MEDS: KETOROLAC 15 MG/1 ML VIAL IV SCH ×3 (07:13→23:39)
[2017-03-29] MEDS: DOCUSATE SODIUM 100 MG CAPSULE PO SCH ×2 (08:51→20:47)
[2017-03-29] MEDS: SERTRALINE 25 MG TABLET PO SCH (08:51)
[2017-03-29] MEDS: PANTOPRAZOLE 40 MG TABLET PO SCH (08:51)
[2017-03-29] MEDS: ENOXAPARIN 40 MG/0.4 ML SYRINGE SUBCUT SCH (11:44)
--- NOTE | 2017-03-29 19:12 | Internal Med Progress Note ---
Assessment and Plan (1) Chest pain Status: Resolved Current Visit: Yes Qualifiers: Chest pain type: other chest pain Qualified Code(s): R07.89 - Other chest pain; R07.8 - Other chest pain (2) Dyspnea Status: Resolved Current Visit: Yes Qualifiers: Dyspnea type: dyspnea on exertion Qualified Code(s): R06.09 - Other forms of dyspnea (3) Dyslipidemia Status: Chronic Current Visit: Yes (4) Essential hypertension Status: Chronic Current Visit: Yes (5) Family history of coronary artery disease in father Status: Chronic Current Visit: Yes (6) Abnormal liver enzymes Status: Resolved Current Visit: Yes (7) Pulmonary infiltrate in left lung on chest x-ray Problem details: antibiotic started to cover pneumonia Status: Acute Current Visit: Yes (8) Atelectasis Problem details: incentive spirometry ordered Status: Acute Current Visit: Yes (9) Pneumonia Status: Acute Current Visit: Yes Qualifiers: Laterality: left (10) Fever Status: Acute Current Visit: Yes Qualifiers: Fever type: due to other condition Qualified Code(s): R50.81 - Fever presenting with conditions classified elsewhere Internal Medicine - PN: Subj Interval history: Ms. Andrew is a 46 year old female patient of Dr. Tejas Baltazar with history of dyslipidemia, RODNEY on CPAP, HTN, family history CAD/[place] at young age, who presented to ER with chest pain that began this morning. The pain was an aching pain along with pressure and radiated down her left arm. She will have cardiac catheterization in the morning. ECHO indicates normal LVEF of 55%, but mild pulmonary hypertension. She has known obstructive sleep apnea and is overweight. Chest x-ray is suggestive of left lower lung infiltrate/atelectasis. Antibiotic will be started as well as breathing treatments and incentive spirometer. She is complaining of sinus headache and congestion. She will be treated for pneumonia, and Azithromycin has been added as well as Solumedrol low dose, and Toradol to help with body aches and fever. She has fever earlier today. Blood cultures ordered. Pneumonia likely source of chest pain. Doing better and will be discharged in the morning to go home. Exam (Progress Note) - Constitutional Vitals: Period Temp Pulse Resp BP Sys/Bee Pulse Ox Last 24 Hr 97.7 F-99.1 F 65-81 18-20 99-140/51-82 92-99 Exam: General appearance: no acute distress - Respiratory Respiratory exam: Present: clear to auscultation bilaterally - Cardiovascular Cardiovascular exam: Present: regular rate and rhythm - GI/Abdominal GI/Abdominal exam: Present: soft. Absent: tenderness - Extremities Exam Extremities exam: Absent: edema - Neurological Exam Neurological exam: Present: alert, oriented X3 - Psychiatric Psychiatric exam: Present: normal mood - Skin Skin exam: Present: warm, dry Results - Labs CBC & BMP: 03/28/17 05:37 03/29/17 04:06 Quality Measures - VTE Contraindication to Pharmacological VTE Prophylaxis: High Risk of Bleeding Specialty Discharge - Follow Up or Referrals
[2017-03-29] MEDS: ATORVASTATIN 10 MG TABLET PO SCH (20:47)
[2017-03-29] MEDS: MONTELUKAST 10 MG TABLET PO SCH (20:48)
--- NOTE | 2017-03-29 22:57 | Discharge Summary ---
Hospital Course - Hospital Course Hospital Course: Ms. Andrew is a 46 year old female patient of Dr. Tejas Baltazar with history of dyslipidemia, RODNEY on CPAP, HTN, family history CAD/[place] at young age, who presented to ER with chest pain that began this morning. The pain was an aching pain along with pressure and radiated down her left arm. She will have cardiac catheterization in the morning. ECHO indicates normal LVEF of 55%, but mild pulmonary hypertension. She has known obstructive sleep apnea. Chest x-ray is suggestive of left lower lung infiltrate/atelectasis. Antibiotic will be started as well as breathing treatments and incentive spirometer. She is complaining of sinus headache and congestion. She will be treated for pneumonia, and Azithromycin has been added as well as Solumedrol low dose, and Toradol to help with body aches and fever. She has fever earlier today. Blood cultures ordered. Pneumonia likely source of chest pain. Doing better and will be discharged to home. Diagnosis - Discharge Diagnosis (1) Chest pain Status: Resolved (2) Dyspnea Status: Resolved (3) Dyslipidemia Status: Chronic (4) Essential hypertension Status: Chronic (5) Family history of coronary artery disease in father Status: Chronic (6) Abnormal liver enzymes Status: Resolved (7) Pulmonary infiltrate in left lung on chest x-ray Status: Acute (8) Atelectasis Status: Acute (9) Pneumonia Status: Acute (10) Fever Status: Resolved Specialty Discharge - Follow Up or Referrals Discharge Plan - Discharge Data Disposition: Disch To Home/Self Care Condition at Discharge: Stable Discharge Diet: low fat, low cholesterol Activity: increase activity as tolerated - Discharge Medications New Cefuroxime Tab [Ceftin] 250 mg PO BID #20 tablet Docusate Sodium Cap [Colace Cap] 100 mg PO BID capsule Meloxicam [Mobic] 15 mg PO AC BREAKFAST #30 tablet Pantoprazole Tab [Protonix Tab] 40 mg PO DAILY tablet Azithromycin [Azithromycin Z Pack] 250 mg PO DIRECTED #1 tablet Montelukast Tab [Singulair Tab] 10 mg PO BEDTIME tablet Continue Sertraline [Zoloft] 50 mg PO DAILY Atorvastatin [Lipitor] 20 mg PO BEDTIME amLODIPine [Norvasc] 5 mg PO BID Zolpidem [Ambien] 5 mg PO BEDTIME PRN PRN Reason: Sleep Tramadol HCl [Tramadol Tab] 50 mg PO Q6H PRN PRN Reason: Pain Montelukast Tab [Singulair Tab] 10 mg PO BEDTIME Discontinued Furosemide Tab [Lasix Tab] 20 mg PO DAILY Potassium Chloride [Klor-Con 10] 20 meq PO BID Pantoprazole Tab [Protonix Tab] 40 mg PO BID #60 tablet Valsartan/Hydrochlorothiazide [Valsartan-Hctz 160-12.5 mg Tab] 1 tablet PO DAILY - Follow Up or Referral Follow Up: Tejas Baltazar MD [Physician] - - Forms/Instructions Instructions: Left Heart Catheterization (DC), How to Stop Smoking (GEN), Heart Healthy Diet (GEN), Cigarette Smoking and Your Health (GEN), Coronary Artery Disease in Women (GEN) Additional Discharge Instructions: Follow up with Dr. Tejas Baltazar within 1-2 weeks in clinic. Exam - Constitutional Vitals: Period Temp Pulse Resp BP Sys/Bee Pulse Ox Last 24 Hr 97.5 F-99.1 F 65-81 18-20 99-148/51-93 92-99 Exam: General appearance: no acute distress - Respiratory Respiratory exam: Present: clear to auscultation bilaterally - Cardiovascular Cardiovascular exam: Present: regular rate and rhythm - GI/Abdominal GI/Abdominal exam: Present: soft. Absent: tenderness - Extremities Exam Extremities exam: Absent: edema - Neurological Exam Neurological exam: Present: alert, oriented X3 - Psychiatric Psychiatric exam: Present: normal mood - Skin Skin exam: Present: warm, dry Discharge Results Procedures and tests throughout hospitalization: Pending Orders 03/27/17 16:05 Blood Culture Stat Labs on day of discharge: Labs from last 24 hours 03/29/17 04:06 Sodium 147 H Potassium 4.2 Chloride 111 H Carbon Dioxide 26 Anion Gap 14.2 BUN 12 Creatinine 0.50 L GFR Calculation 137 BUN/Creatinine Ratio 24.00 H Glucose 150 H Calculated Osmolality 294.4 Calcium 8.3 L Preliminary micro results at discharge 03/27/17 16:05 Blood Culture - Preliminary Blood No growth at 1 day 03/27/17 16:05 Blood Culture - Preliminary Blood No growth at 1 day DS: Provider Date of admission: 03/26/17 09:40 Primary care physician: . No PCP Attending physician on admission: Kym Taylor DO Consults: 03/26/17 10:46 Consult to Case Mgmt/Social Srvs [CONS] Routine Reason for Case Mgmt/Social Srvs: Discharge Planning Consult to Physician [CONS] Routine Comment: chest pain Consulting Provider: Saulo Ivey Person Notified: Jeff Date Notified: 03/26/17 Time Notified: 11:31 03/26/17 11:39 Consult to Dietitian [CONS] Routine Reason for Dietitian: Other Consult Comment: wt loss 03/27/17 08:28 Consult to Cardiac Rehabilitation [CONS] Routine Reason for Cardiac Rehabilitation: Smoking Cessation [place] [employer] Discharging clinician: Kym Taylor DO Expected date of discharge: 03/30/17
[2017-03-29] MEDS: AZITHROMYCIN INJ 250 MG in SODIUM CHLORIDE 0.9% 250 ML IV SCH (23:42)
[2017-03-30] MEDS: ALBUTEROL/IPRATROPIUM 3 ML NEB RESP TX SCH ×2 (00:02→07:15)
[2017-03-30] MEDS: methylPREDNISolone SOD SUC 40 MG/1 ML VIAL IV SCH (03:06)
[2017-03-30] MEDS: cefTRIAXone 1,000 MG in SODIUM CHLORIDE 0.9% 100 ML IV SCH (03:09)
[2017-03-30] MEDS: NITROGLYCERIN 2% OINT 1 INCH/GM PACK TOP SCH (05:49)
--- NOTE | 2017-03-30 07:18 | XRay Report ---
Exam: XR chest 2V Date: 03/30/2017 4:00 AM Indication: Pneumonia Comparison: 03/26/2017 Technical: PA lateral Findings: Mild cardiac prominence. Mild interstitial thickening without consolidation. No pneumothorax. The mediastinum and bony structures are otherwise unremarkable. Impression: 1. Mild prominence the cardiac silhouette 2. Mild interstitial thickening without consolidations present. PROCEDURE INTERPRETED AT [facility] DEPARTMENT OF RADIOLOGY Final Report Signed by: Dr. Alberto Javier
[2017-03-30 08:08] VITALS: BP 133/81
[2017-03-30] MEDS: KETOROLAC 15 MG/1 ML VIAL IV SCH (08:58)
[2017-03-30] MEDS: DOCUSATE SODIUM 100 MG CAPSULE PO SCH (08:58)
[2017-03-30] MEDS: SERTRALINE 25 MG TABLET PO SCH (08:58)
[2017-03-30] MEDS: PANTOPRAZOLE 40 MG TABLET PO SCH (08:58)
== END 2017-03-30 10:44 | disposition home or self-care (01) | DRG 194 ==
LOC: N.ED 06:48 → N.EDINP 06:48 → OBSVTOIN 09:40 → MERGE 09:40 → N.5E 10:10
PROVIDERS: ADMIT Internal Medicine; ATTEND Internal Medicine
PROC: CLCCHCL (ICD-10-PCS; 2017-03-27 08:15)